=== PATIENT | female | born 1990 | race Caucasian/White ===

== ENCOUNTER 2016-12-21 20:00 | Emergency (ER) | payer OTHER ==
--- NOTE | 2016-12-21 22:26 | ED ---
Leticia Simental Rebecca, scribed for LienJimbo on 12/21/16 at 2039 . Throat Pain/Nasal Congestion - HPI Summary HPI Summary: Pt is a 26 y/o F who presents to ED c/o epistaxis. Pt reports this afternoon at approximately 1230 she has sinus surgery to "clean out my sinuses" as "a couple other things sinus related" and that the bleeding began immediately upon surgery and has been constant since onset. Denies any pain. Sx aggravated and alleviated by nothing. Denies fever. Surgery done by Dr. Anderson in [place] at [facility] [employer] whose [employer] OFFICER SUPERVISOR she discussed the condition with today and advised she come to the ED for packing. - History of Current Complaint Chief Complaint: EDEpistaxis Time Seen by Provider: 12/21/16 20:35 Hx Obtained From: Patient Onset/Duration: Sudden Onset, Still Present Associated Signs And Symptoms: Positive: Nasal Discharge - Blood s/p surgery Related History: Prior ENT Surgery - Sinus surgeyr this afternoon - Allergies/Home Medications Allergies/Adverse Reactions: Allergies Allergy/AdvReac Type Severity Reaction Status Date / Time Amoxicillin Allergy Severe Difficulty Verified 12/21/16 20:05 Breathing Cefuroxime [From Ceftin] Allergy Severe Difficulty Verified 12/21/16 20:05 Breathing Cetirizine Allergy Severe Swelling Verified 12/21/16 20:05 Of Face,Lips,& Throat Penicillins Allergy Severe Difficulty Verified 12/21/16 20:05 Breathing Magnesium Hydroxide Allergy Intermediate Itching Verified 12/21/16 20:05 [From Milk of Magnesia] Clindamycin Allergy Rash Verified 12/21/16 20:05 Tea Tree Oil Allergy CHEMICAL Verified 12/21/16 20:05 BURN Dextromethorphan AdvReac Mild See Comment Verified 12/21/16 20:05 [From Mucinex DM] PMH/Surg Hx/FS Hx/Imm Hx Endocrine/Hematology History: Denies: Hx Diabetes, Hx Thyroid Disease Cardiovascular History: Denies: Hx Hypertension, Hx Pacemaker/ICD Respiratory History: Denies: Hx Asthma, Hx Chronic Obstructive Pulmonary Disease (COPD) GI History: Denies: Hx Ulcer History: Denies: Hx Renal Disease Sensory History: Denies: Hx Contacts or Glasses, Hx Hearing Aid Opthamlomology History: Denies: Hx Contacts or Glasses Psychiatric History: Denies: Hx Panic Disorder - Surgical History Surgery Procedure, Year, and Place: 3 surgeries to left knee; tonsilectomy. wisdom teeth extraction-07/2015 Infectious Disease History: No Infectious Disease History: Denies: Hx Clostridium Difficile, Hx Hepatitis, Hx Human Immunodeficiency Virus (HIV), Hx of Known/Suspected MRSA, Hx Shingles, Hx Tuberculosis, Hx Known/ Suspected VRE, Hx Known/Suspected VRSA, History Other Infectious Disease, Traveled Outside the [place] in Last 30 Days - Family History Known Family History: Negative: Cardiac Disease - Social History Alcohol Use: None Substance Use Type: Reports: None Smoking Status (MU): Never Smoked Tobacco Review of Systems Negative: Fever Positive: Epistaxis - s/p sinus surgery All Other Systems Reviewed And Are Negative: Yes Physical Exam - Summary Physical Exam Summary: Appearance: Well appearing, no pain distress Skin: warm, dry, reflects adequate perfusion Head/face: normal Eyes: EOMI, SHELDON ENT: Some dried blood in both nostrils, no active bleeding Neck: supple, nontender Resp: CTA, breath sounds present Cardio: RRR, pulses symm Abd: nontender, soft Bowel: present Musc: normal, strength/ROM intact Neuro: normal, sensory motor intact, A&Ox3 Triage Information Reviewed: Yes Vital Signs On Initial Exam: Initial Vitals Temp Pulse Resp BP Pulse Ox 98.4 F 84 18 131/74 100 12/21/16 20:01 12/21/16 20:01 12/21/16 20:01 12/21/16 20:01 12/21/16 20:01 Vital Signs Reviewed: Yes Procedures - Procedure Summary Procedure Summary: Nasal packing done with Surgicel. Pt tolerated well, no bleeding at present. We will watch the pt. Diagnostics - Vital Signs Vital Signs Temp Pulse Resp BP Pulse Ox 12/21/16 20:01 98.4 F 84 18 131/74 100 - Laboratory Lab Statement: Any lab studies that have been ordered have been reviewed, and results considered in the medical decision making process. Re-Evaluation - Re-Evaluation First Eval Re-Evaluation Time: 21:40 Change: Unchanged Comment: Pt reports it feels as though there is blood running down the back of her throat. Upon examination, there is no active bleeding seen. Second Eval Re-Evaluation Time: 22:14 Change: Improved Comment: Discussed the conversaiton with Dr. Anderson's [employer] OFF[employer]ER SUPERVISOR and that the pt can follow up in the office tomorrow. Pt understands and agrees. EENT Course/Dx - Course Assessment/Plan: Pt is a 26 y/o F with a CC of constant epistaxis s/p sinus surgery this afternoon at 1230. Denies any pain and denies fever. Nasal packing was performed with Surgicel, which was tolerated well by the pt. Discussed care of pt with Dr. Anderson's [employer]RECTION OFFICER SUPERVISOR, who states she was advised to go to [place] ED for any complications, that posterior dribbling of blood is normal and that the pt can be seen in the office tomorrow. Pt will be D/C to home with a Dx of epistaxis, nasal surgery and post-operational complications with a followup with Lazarus Anderson in the morning. Pt understands and agrees. - Diagnoses Provider Diagnoses: Epistaxis, S/P nasal surgery, Post-operative complication - Provider Notifications Discussed Care Of Patient With: Dr. Anderson's [employer]RECTION OFFICER SUPERVISOR ([facility]) - States the pt was advised to followup at [place]. Will see pt in office. Time Discussed With Above Provider: 22:10 Discharge - Discharge Plan Condition: Stable Disposition: HOME Patient Education Materials: Nosebleed (ED) Referrals: Morris Anderson MD [Medical Doctor] - 12/22/16 The documentation as recorded by the Leticia antonio Rebecca accurately reflects the service I personally performed and the decisions made by , Jimbo Emmanuel.
[2016-12-21 22:59] VITALS: BP 118/79
== END 2016-12-21 22:57 | disposition home or self-care (01) ==
LOC: ED 20:00
DX: R04.0 Epistaxis (principal); Z98.890 Other specified postprocedural states
CPT/HCPCS: 99281

== ENCOUNTER 2017-01-18 09:31 | Emergency (ER) | payer OTHER ==
[2017-01-18 11:35] VITALS: BP 113/88
--- NOTE | 2017-01-18 12:20 | RAD ---
INDICATION: Right ankle injury COMPARISON: None TECHNIQUE: AP, lateral, and oblique views were obtained. FINDINGS: There is no acute fracture. The ankle mortise is intact. The soft tissues are normal. Incidental is made of a plantar calcaneal spur. IMPRESSION: NO ACUTE BONY FINDINGS.
--- NOTE | 2017-01-18 12:58 | UC ---
Lower Extremity/Ankle HPI - HPI Summary HPI Summary: TRIPPED ONE WEEK AGO, PAIN AND SWELLING IN RIGHT ANKLE - History of Current Complaint Chief Complaint: UCLowerExtremity Stated Complaint: SWOLLEN FOOT Time Seen by Provider: 01/18/17 11:45 Hx Obtained From: Patient Hx Last Menstrual Period: 01/08/17 ?: Yes Onset/Duration: Sudden Onset, Lasting Days, Still Present Severity Initially: Mild Severity Currently: Mild Pain Intensity: 4 Pain Scale Used: 0-10 Numeric Aggravating Factor(s): Standing, Ambulation Alleviating Factor(s): Rest Able to Bear Weight: Yes - Risk Factors Gout Risk Factors: Negative DVT Risk Factors: Negative Septic Arthritis Risk Factor: Negative - Allergies/Home Medications Allergies/Adverse Reactions: Allergies Allergy/AdvReac Type Severity Reaction Status Date / Time Amoxicillin Allergy Severe Difficulty Verified 01/18/17 09:57 Breathing Cefuroxime [From Ceftin] Allergy Severe Difficulty Verified 01/18/17 09:57 Breathing Cetirizine Allergy Severe Swelling Verified 01/18/17 09:57 Of Face,Lips,& Throat Penicillins Allergy Severe Difficulty Verified 01/18/17 09:57 Breathing Magnesium Hydroxide Allergy Intermediate Itching Verified 01/18/17 09:57 [From Milk of Magnesia] Clindamycin Allergy Rash Verified 01/18/17 09:57 Tea Tree Oil Allergy CHEMICAL Verified 01/18/17 09:57 BURN Dextromethorphan AdvReac Mild See Comment Verified 01/18/17 09:57 [From Mucinex DM] Home Medications: Home Medications Ferrogluconate 1 tab PO DAILY 01/18/17 [History] Guaifenesin 1 tab PO DAILY 01/18/17 [History Confirmed 01/18/17] LevoCETirizine TAB (NF) [Xyzal TAB (NF)] 1 tab PO DAILY 01/18/17 [History Confirmed 01/18/17] Mometasone NASAL (NF) [Nasonex (NF)] 01/18/17 [History] Montelukast Sodium TAB* [Singulair 10 MG TAB*] 10 mg PO DAILY 01/18/17 [History Confirmed 01/18/17] Multiple Vitamin [Multivitamins] 1 PO DAILY 01/18/17 [History] PMH/Surg Hx/FS Hx/Imm Hx Previously Healthy: Yes - Surgical History Surgical History: Yes Surgery Procedure, Year, and Place: 3 surgeries to left knee; tonsilectomy. wisdom teeth extraction-07/2015. SINUS - Family History Known Family History: Positive: None Negative: Cardiac Disease - Social History Occupation: Employed Full-time Lives: With Family Alcohol Use: None Substance Use Type: None Smoking Status (MU): Never Smoked Tobacco Review of Systems Constitutional: Negative Skin: Negative Eyes: Negative ENT: Negative Respiratory: Negative Cardiovascular: Negative Gastrointestinal: Negative Genitourinary: Negative Motor: Negative Neurovascular: Negative Musculoskeletal: Arthralgia, Edema, Myalgia Neurological: Negative Psychological: Negative All Other Systems Reviewed And Are Negative: Yes Physical Exam Triage Information Reviewed: Yes Appearance: Well-Appearing, No Pain Distress, Well-Nourished Vital Signs: Initial Vital Signs Temp 98.4 F 01/18/17 10:02 Pulse 87 01/18/17 10:02 Resp 16 01/18/17 10:02 BP 124/78 01/18/17 10:02 Pulse Ox 100 01/18/17 10:02 Vital Signs Reviewed: Yes Eye Exam: Normal ENT Exam: Normal ENT: Positive: Normal ENT inspection, Hearing grossly normal, TMs normal Dental Exam: Normal Neck exam: Normal Respiratory Exam: Normal Respiratory: Positive: Chest non-tender, Lungs clear, Normal breath sounds, No respiratory distress, No accessory muscle use Cardiovascular Exam: Normal Cardiovascular: Positive: RRR, No Murmur, Pulses Normal Abdominal Exam: Normal Musculoskeletal Exam: Normal Musculoskeletal: Positive: Strength Intact, ROM Intact, Edema @ - RIGHT ANKLE Neurological Exam: Normal Psychological Exam: Normal Skin Exam: Normal Lower Extremity Course/Dx - Differential Dx/Diagnosis Differential Diagnosis/HQI/PQRI: Fracture (Closed), Sprain, Strain Provider Diagnoses: RIGHT ANKLE SPRAIN Discharge - Discharge Plan Condition: Stable Disposition: HOME Patient Education Materials: Ankle Sprain (ED) Forms: *Work Release Referrals: [facility] [Outside] Delma Ha NP [Primary Care Provider] -
== END 2017-01-18 12:54 | disposition home or self-care (01) ==
LOC: UCEAST 09:31
DX: S93.401A Sprain of unspecified ligament of right ankle, initial encounter (principal); Z88.0 Allergy status to penicillin; W01.0XXA Fall on same level from slipping, tripping and stumbling without subsequent striking against object, initial encounter; Y92.9 Unspecified place or not applicable
CPT/HCPCS: 99213; G0463

== ENCOUNTER 2017-01-22 15:19 | Emergency (ER) | payer OTHER ==
[2017-01-22 15:33] VITALS: BP 127/82
--- NOTE | 2017-01-22 15:46 | UC ---
Lower Extremity/Ankle HPI - HPI Summary HPI Summary: pat seen last week dx with sprain right ankle, still is unable to wb fully using crutch and gel splint - History of Current Complaint Chief Complaint: UCLowerExtremity Stated Complaint: SHERLYN-FORM Time Seen by Provider: 01/22/17 15:45 Hx Obtained From: Patient Hx Last Menstrual Period: 01/14/17 ?: No Onset/Duration: Sudden Onset, Lasting Days, Still Present Severity Initially: Moderate Severity Currently: Moderate Pain Intensity: 6 Pain Scale Used: 0-10 Numeric - 6 Aggravating Factor(s): Standing, Ambulation Alleviating Factor(s): Rest Able to Bear Weight: No - Allergies/Home Medications Allergies/Adverse Reactions: Allergies Allergy/AdvReac Type Severity Reaction Status Date / Time Amoxicillin Allergy Severe Difficulty Verified 01/18/17 09:57 Breathing Cefuroxime [From Ceftin] Allergy Severe Difficulty Verified 01/18/17 09:57 Breathing Cetirizine Allergy Severe Swelling Verified 01/18/17 09:57 Of Face,Lips,& Throat Penicillins Allergy Severe Difficulty Verified 01/18/17 09:57 Breathing Magnesium Hydroxide Allergy Intermediate Itching Verified 01/18/17 09:57 [From Milk of Magnesia] Clindamycin Allergy Rash Verified 01/18/17 09:57 Tea Tree Oil Allergy CHEMICAL Verified 01/18/17 09:57 BURN Dextromethorphan AdvReac Mild See Comment Verified 01/18/17 09:57 [From Mucinex DM] PMH/Surg Hx/FS Hx/Imm Hx Previously Healthy: Yes - Surgical History Surgical History: Yes Surgery Procedure, Year, and Place: 3 surgeries to left knee; tonsilectomy. wisdom teeth extraction-07/2015. SINUS - Family History Known Family History: Positive: None Negative: Cardiac Disease - Social History Occupation: Employed Full-time Lives: With Family Alcohol Use: None Substance Use Type: None Smoking Status (MU): Never Smoked Tobacco Review of Systems Constitutional: Negative Skin: Negative Eyes: Negative ENT: Negative Respiratory: Negative Cardiovascular: Negative Gastrointestinal: Negative Genitourinary: Negative Motor: Negative Neurovascular: Negative Musculoskeletal: Arthralgia - right Neurological: Negative Psychological: Negative All Other Systems Reviewed And Are Negative: Yes Physical Exam Triage Information Reviewed: Yes Appearance: Well-Appearing, No Pain Distress, Well-Nourished Vital Signs: Initial Vital Signs Temp 97.9 F 01/22/17 15:29 Pulse 86 01/22/17 15:29 Resp 18 01/22/17 15:29 BP 127/82 01/22/17 15:29 Pulse Ox 100 01/22/17 15:29 Vital Signs Reviewed: Yes Eye Exam: Normal Eyes: Positive: Conjunctiva Clear ENT Exam: Normal ENT: Positive: Normal ENT inspection, Hearing grossly normal. Negative: Nasal congestion, Nasal drainage, Trismus, Muffled/hoarse voice Dental Exam: Normal Neck exam: Normal Neck: Positive: Supple, Nontender Respiratory Exam: Normal Respiratory: Positive: Chest non-tender, Normal breath sounds, No respiratory distress, No accessory muscle use Cardiovascular Exam: Normal Cardiovascular: Positive: RRR, Pulses Normal, Brisk Capillary Refill Musculoskeletal Exam: Normal Musculoskeletal: Positive: Strength Limited @ - right ankle, ROM Limited @ - right ankle, Edema @ - right ankle Neurological Exam: Normal Psychological Exam: Normal Skin Exam: Normal Re-Evaluation - Re-Evaluation First Eval Change: Improved - changed to cam boot Lower Extremity Course/Dx - Course Course Of Treatment: cam boot, limited wb , for with ortho, ibuprofen for pain - Differential Dx/Diagnosis Differential Diagnosis/HQI/PQRI: Contusion, Fracture (Closed), Sprain, Strain Provider Diagnoses: Right ankle sprain Discharge - Discharge Plan Condition: Stable Disposition: HOME Patient Education Materials: Ibuprofen (By mouth), Ankle Sprain (ED), RICE Therapy (ED) Forms: *Work Release Referrals: Yusuf Velazquez MD [Medical Doctor] - 2 Days
== END 2017-01-22 16:20 | disposition home or self-care (01) ==
LOC: UCEAST 15:19
DX: S93.401D Sprain of unspecified ligament of right ankle, subsequent encounter (principal)
CPT/HCPCS: 99212; G0463

== ENCOUNTER 2017-04-01 21:55 | Emergency (ER) | payer OTHER ==
[2017-04-01 22:01] VITALS: BP 128/80
[2017-04-01] MEDS ORDERED: Tetan/Diph/Pertus SYR(Tdap)* 0.5 ML SYR(BOOSTRIX) use SYR IM ONE (22:24)
--- NOTE | 2017-04-01 22:49 | UC ---
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 - History Of Current Complaint Chief Complaint: UCLaceration Stated Complaint: THUMB LAC Time Seen by Provider: 04/01/17 22:13 Hx Obtained From: Patient Hx Last Menstrual Period: 03/11/17 Laceration Location: Finger - RIGHT THUMB Mechanism Of Injury: Sharp Trauma Onset/Duration: Sudden Onset, Lasting Hours Severity: Moderate Pain Intensity: 9 Pain Scale Used: 0-10 Numeric Aggravating Factors: Movement - Allergies/Home Medications Allergies/Adverse Reactions: Allergies Allergy/AdvReac Type Severity Reaction Status Date / Time Amoxicillin Allergy Severe Difficulty Verified 01/18/17 09:57 Breathing Cefuroxime [From Ceftin] Allergy Severe Difficulty Verified 01/18/17 09:57 Breathing Penicillins Allergy Severe Difficulty Verified 01/18/17 09:57 Breathing Magnesium Hydroxide Allergy Intermediate Itching Verified 01/18/17 09:57 [From Milk of Magnesia] Clindamycin Allergy Rash Verified 01/18/17 09:57 Tea Tree Oil Allergy CHEMICAL Verified 01/18/17 09:57 BURN Dextromethorphan AdvReac Mild See Comment Verified 01/18/17 09:57 [From Mucinex DM] Home Medications: Home Medications Diphenhydramine HCl [Benadryl Allergy 25 MG TAB] 25 mg PO 04/01/17 [History] Fexofenadine (NF) [Lacey (NF)] 120 mg PO DAILY 04/01/17 [History Confirmed 05/08] Montelukast Sodium TAB* [Singulair 10 MG TAB*] 04/01/17 [History] PMH/Surg Hx/FS Hx/Imm Hx Other Respiratory History: ALLERGIES - Surgical History Surgical History: Yes Surgery Procedure, Year, and Place: 3 surgeries to left knee; tonsilectomy. wisdom teeth extraction-07/2015. SINUS - Family History Known Family History: Positive: None Negative: Cardiac Disease - Social History Alcohol Use: None Substance Use Type: None Smoking Status (MU): Never Smoked Tobacco Review of Systems Constitutional: Negative Skin: Other - LACERATION Respiratory: Negative Cardiovascular: Negative Gastrointestinal: Negative All Other Systems Reviewed And Are Negative: Yes Physical Exam Triage Information Reviewed: Yes Appearance: Well-Appearing, No Pain Distress, Well-Nourished Vital Signs: Initial Vital Signs Temp 97.3 F 04/01/17 21:57 Pulse 79 04/01/17 21:57 Resp 18 04/01/17 21:57 BP 128/80 04/01/17 21:57 Pulse Ox 100 04/01/17 21:57 Vital Signs Reviewed: Yes Eyes: Positive: Conjunctiva Clear ENT: Positive: Hearing grossly normal Neck: Positive: Supple Respiratory: Positive: No respiratory distress, No accessory muscle use Cardiovascular: Positive: Pulses Normal Abdomen Description: Positive: Soft Musculoskeletal: Positive: No Edema Neurological: Positive: Alert Psychological: Positive: Age Appropriate Behavior Skin: Positive: Other - 1CM LINEAR LACERATION RIGHT THUMB OVER MCP JOINT. Negative: rashes Laceration Repair - Laceration Repair 1 Description: Linear Laceration Size After Repair: Length (cm) - 1CM, Width (mm) - 0MM, Depth (mm) - 2MM Modified For Repair: No Irrigation With Pressure Irrigation Device: Yes Closure Material: Skin Adhesive, SteriStrips Laceration Course/Dx - Course/Dx Course Of Treatment: PT HAS AN APPT WITH DR. ACUNA THIS WEEK ALREADY FOR A SEPARATE ISSUE. ADVISED PT TO CALL TOMORROW TO INFORM THEM SHE WOULD ALSO LIKE TO DISCUSS HER THUMB INJURY SHE IS UNABLE TO FULLY FLEX HER THUMB. - Differential Dx - Laceration/Wound Provider Diagnoses: LACERATION REPAIR RIGHT THUMB - GLUE AND STERISTRIPS Discharge - Discharge Plan Condition: Stable Disposition: HOME Patient Education Materials: Laceration (ED), Steristrips (ED) Referrals: Delma Ha, RN NEONATAL [Primary Care Provider] - If Needed Additional Instructions: SEEK FOLLOW-UP IF YOU DEVELOP SPREADING REDNESS OF THE SKIN, PURULENT DRAINAGE, FEVER, INCREASED PAIN OR ANY OTHER CONCERNING SYMPTOMS. THE STERISTRIPS WILL FALL OFF ON THEIR OWN IN THE NEXT 1-2 WEEKS. DO NOT PUT ANY OINTMENT ON TOP OF THEM. DO NOT SUBMERGE IN WATER FOR PROLONGED PERIOD OF TIME. OKAY FOR BRIEF SHOWER AFTER 24 HOURS AND THEN BE SURE TO ALLOW TO DRY COMPLETELY. TETANUS IMMUNIZATION GIVEN (TDAP): You have been given an immunization against tetanus. Please record this in your records. In general, a booster is needed only once every 10 years. The tetanus shot protects against tetanus or "lockjaw," which is a complication of certain wound infections (the tetanus shot cannot protect against the actual infection). The immunization site may become warm and red due to local reaction. If this occurs, apply warm compresses and take aspirin or ibuprofen to reduce inflammation and discomfort. Return for evaluation if the reaction becomes severe.
== END 2017-04-01 22:51 | disposition home or self-care (01) ==
LOC: UCEAST 21:55
DX: S61.011A Laceration without foreign body of right thumb without damage to nail, initial encounter (principal); W26.0XXA Contact with knife, initial encounter; Y93.G1 Activity, food preparation and clean up; Y92.9 Unspecified place or not applicable
CPT/HCPCS: 12001; 90471; 90715; 99211; G0463

== ENCOUNTER 2017-05-07 13:49 | Emergency (ER) | payer OTHER ==
[2017-05-07 14:31] VITALS: BP 125/84
--- NOTE | 2017-05-07 15:15 | UC ---
Helena Simental Emily, scribed for Ingris Gallagher MD on 05/07/17 at 1502 . General HPI - HPI Summary HPI Summary: This patient is a 26 year old F presenting to urgent care with a chief complaint of difficulty swallowing solid foods that began 1 week ago. The CC is described as pressure when swallowing. P states solid foods feel like they get stuck and cause mild Sob. The patient rates the pain 4/10 in severity during event only. Symptoms aggravated by nothing. Symptoms alleviated by nothing. Patient reports vomiting and gagging with resolution after vomits. Pt reports difficulty breathing during the episodes where she cannot swallow solid foods. Pt without symptoms currently. Pt states last episode approx noon today. No previous h/o similar. No belching. No drooling. Patient's medication reviewed this visit. - History of Current Complaint Chief Complaint: UCGI Stated Complaint: TROUBLE SWALLOWING Time Seen by Provider: 05/07/17 14:53 Hx Obtained From: Patient Hx Last Menstrual Period: 04/08 Onset/Duration: Sudden Onset, Lasting Weeks, Still Present Onset Severity: Moderate Current Severity: Moderate Associated Signs & Symptoms: Positive: Vomiting, Other - solid food getting stuck - Allergy/Home Medications Allergies/Adverse Reactions: Allergies Allergy/AdvReac Type Severity Reaction Status Date / Time Amoxicillin Allergy Severe Difficulty Verified 05/07/17 14:31 Breathing Cefuroxime [From Ceftin] Allergy Severe Difficulty Verified 05/07/17 14:31 Breathing Penicillins Allergy Severe Difficulty Verified 05/07/17 14:31 Breathing Magnesium Hydroxide Allergy Intermediate Itching Verified 05/07/17 14:31 [From Milk of Magnesia] Clindamycin Allergy Rash Verified 05/07/17 14:31 Tea Tree Oil Allergy CHEMICAL Verified 05/07/17 14:31 BURN Dextromethorphan AdvReac Mild See Comment Verified 05/07/17 14:31 [From Mucinex DM] Home Medications: Home Medications Azelastine/Fluticasone JESSICA(NF [Dymista(NF)] 1 spr NA 05/07/17 [History Confirmed 05/07/17] Fluticasone Propionate (Nasal) [Flonase Allergy Relief] 50 mcg NA 05/07/17 [ History] PMH/Surg Hx/FS Hx/Imm Hx - Additional Past Medical History Additional PMH: Psoriasis Previously Healthy: No Other Respiratory History: Negative COPD and asthma - Surgical History Surgical History: Yes Surgery Procedure, Year, and Place: 3 surgeries to left knee; tonsilectomy. wisdom teeth extraction-07/2015. S[facility]US - Family History Known Family History: Positive: None Negative: Cardiac Disease - Social History Occupation: Employed Full-time Lives: With Family Alcohol Use: Rare Substance Use Type: None Smoking Status (MU): Never Smoked Tobacco Review of Systems Constitutional: Negative Skin: Negative ENT: Other - Positive difficulty swallowing solid foods Respiratory: Other - Positive difficulty breathing during episodes Gastrointestinal: Vomiting, Other - Positive gagging All Other Systems Reviewed And Are Negative: Yes Physical Exam Triage Information Reviewed: Yes Appearance: Well-Appearing, No Pain Distress, Well-Nourished Vital Signs: Initial Vital Signs Temp 98.2 F 05/07/17 14:26 Pulse 83 05/07/17 14:26 Resp 18 05/07/17 14:26 BP 125/84 05/07/17 14:26 Pulse Ox 100 05/07/17 14:26 Vital Signs Reviewed: Yes Eye Exam: Normal Eyes: Positive: Conjunctiva Clear ENT Exam: Normal ENT: Positive: Normal ENT inspection, Hearing grossly normal, Pharynx normal, TMs normal, Other: - no drooling, posturing, difficulty with secretions. Dental Exam: Normal Neck exam: Normal Respiratory Exam: Normal Respiratory: Positive: Chest non-tender, Lungs clear, Normal breath sounds, No respiratory distress Cardiovascular Exam: Normal Cardiovascular: Positive: RRR, No Murmur, Pulses Normal Abdominal Exam: Normal Abdomen Description: Positive: Nontender, No Organomegaly, Soft Bowel Sounds: Positive: Present Musculoskeletal Exam: Normal Neurological Exam: Normal Neurological: Positive: Alert Psychological Exam: Normal Skin Exam: Normal Course/Dx - Course Course Of Treatment: Pt presents with progressive difficulty with solid food - states feels gets stuck - mid chest area. pt states resolved with gagging, vomiting. No difficulty with soft foods or liquids. Pt without current symptoms. Pt with stable VSS. Non concerning exam. Pt uses public transportation. Pt has never been seen by GI. spoke with Dr. Vela's office- [facility] - Dr. Vela doing scope. Recommend pt to ED for further eval and treatment plan. Spoke with pt - agreeement with plan. Will try to arrange medicaid cab to ED - pt without active symptoms. Pt to remain NPO until further evaluation - Differential Dx - Multi-Symptom Provider Diagnoses: difficulty swallowing - Physician Notifications Discussed Patient Care With: Sukh Vela Time Discussed With Above Provider: 15:11 Instructed by Provider To: Other - Consult with Dr. Vela (gastroenterology) at 1511. Dr. Vela was unavailable due to a procedure, spoke to nurse Ute instead. She recommended pt be sent to the ED for further evaluation. Discharge - Discharge Plan Condition: Stable Disposition: OTHER Discharge Disposition Comment: To ED by private vehicle (medicaid cab) Patient Education Materials: Dysphagia (ED) Referrals: Delma Ha NP [Primary Care Provider] - Additional Instructions: The doctor that evaluated you today recommend you go directly to the emergency department for further evaluation of your difficulty swallowing. It is recommended you do not eat or drink anything prior to your evaluation there. If you develop recurrent symptoms - call 911 or go directly to the emergency department The documentation as recorded by the Helena antonio Emily accurately reflects the service I personally performed and the decisions made by me, Ingris Gallagher MD.
== END 2017-05-07 15:33 ==
LOC: UCEAST 13:49
DX: R13.10 Dysphagia, unspecified (principal); Z88.1 Allergy status to other antibiotic agents; Z88.0 Allergy status to penicillin; Z88.2 Allergy status to sulfonamides; L40.9 Psoriasis, unspecified
CPT/HCPCS: 99211; G0463

== ENCOUNTER 2017-05-07 16:11 | Emergency (ER) | payer OTHER ==
--- NOTE | 2017-05-07 19:25 | ED ---
Throat Pain/Nasal Congestion - HPI Summary HPI Summary: 26 female presents to ED with complaint of difficulty swallowing solid foods that began 1 week ago. Describes as pressure and like there is "a flap in the way of her esophagus". States solid foods get stuck and do not get down. Does admit to some SOB when she cannot swallow the solid foods. Without symptoms currently. Symptoms alleviated by nothing other than vomiting/gagging the solid food back up and not eating solid food. Pain 4/10 during event. Last episode was this afternoon while eating her lunch. No previous history. No PMHx other than seasonal allergies. No belching, drooling, etc. Takes allergy medication. Thought it was a new medication that she was started on, nasal spray, however she stopped using it 5 days ago and has not had relief of symptoms. 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 No other complaints at this time. . - History of Current Complaint Chief Complaint: EDGeneral Time Seen by Provider: 05/07/17 18:13 Hx Obtained From: Patient Onset/Duration: Sudden Onset, Lasting Days, Still Present Associated Signs And Symptoms: Positive: Dysphagia - trouble swallowing solid foods Cough: None - Epiglottits Risk Factors Epiglottis Risk Factors: Negative - Allergies/Home Medications Allergies/Adverse Reactions: Allergies Allergy/AdvReac Type Severity Reaction Status Date / Time Amoxicillin Allergy Severe Difficulty Verified 05/07/17 16:20 Breathing Cefuroxime [From Ceftin] Allergy Severe Difficulty Verified 05/07/17 16:20 Breathing Penicillins Allergy Severe Difficulty Verified 05/07/17 16:20 Breathing Magnesium Hydroxide Allergy Intermediate Itching Verified 05/07/17 16:20 [From Milk of Magnesia] Clindamycin Allergy Rash Verified 05/07/17 16:20 Tea Tree Oil Allergy CHEMICAL Verified 05/07/17 16:20 BURN Dextromethorphan AdvReac Mild See Comment Verified 05/07/17 16:20 [From Mucinex DM] PMH/Surg Hx/FS Hx/Imm Hx Endocrine/Hematology History: Denies: Hx Diabetes, Hx Thyroid Disease Cardiovascular History: Denies: Hx Hypertension, Hx Pacemaker/ICD Respiratory History: Denies: Hx Asthma, Hx Chronic Obstructive Pulmonary Disease (COPD) GI History: Denies: Hx Ulcer History: Denies: Hx Renal Disease Sensory History: Denies: Hx Contacts or Glasses, Hx Hearing Aid Opthamlomology History: Denies: Hx Contacts or Glasses Psychiatric History: Denies: Hx Panic Disorder - Surgical History Surgery Procedure, Year, and Place: 3 surgeries to left knee; tonsilectomy. wisdom teeth extraction-07/2015. SINUS - Immunization History Immunizations Up to Date: Yes Infectious Disease History: No Infectious Disease History: Denies: Hx Clostridium Difficile, Hx Hepatitis, Hx Human Immunodeficiency Virus (HIV), Hx of Known/Suspected MRSA, Hx Shingles, Hx Tuberculosis, Hx Known/ Suspected VRE, Hx Known/Suspected VRSA, History Other Infectious Disease, Traveled Outside the [place] in Last 30 Days - Family History Known Family History: Positive: None Negative: Cardiac Disease - Social History Alcohol Use: Rare Substance Use Type: Reports: None Smoking Status (MU): Never Smoked Tobacco Review of Systems Constitutional: Negative Positive: Other - dysphagia Respiratory: Negative Gastrointestinal: Negative Musculoskeletal: Negative All Other Systems Reviewed And Are Negative: Yes Physical Exam Triage Information Reviewed: Yes Vital Signs On Initial Exam: Initial Vitals Temp Pulse Resp BP Pulse Ox 98.1 F 83 16 133/81 100 05/07/17 16:18 05/07/17 16:18 05/07/17 16:18 05/07/17 16:18 05/07/17 16:18 Vital Signs Reviewed: Yes Appearance: Positive: Well-Appearing, No Pain Distress, Well-Nourished Skin: Positive: Warm, Skin Color Reflects Adequate Perfusion, Dry. Negative: Cold, Cyanosis @, Jaundiced, Pale, Erythema @ Head/Face: Positive: Normal Head/Face Inspection Eyes: Positive: Conjunctiva Clear ENT: Positive: Hearing grossly normal, Pharynx normal, Other - no drooling, no peritonsillar abscess, no sign of FB. patent airway on exam. no edema. Negative : Pharyngeal erythema, TMs normal, Tonsillar swelling, Tonsillar exudate, Trismus, Muffled/hoarse voice Dental: Negative: Cervical Lymphadenopathy Neck: Positive: Supple, Nontender, No Lymphadenopathy Respiratory/Lung Sounds: Positive: Clear to Auscultation, Breath Sounds Present , Other - no sign of respiratory distress. Negative: Rales, Rhonchi, Wheezes Cardiovascular: Positive: Normal, RRR, Pulses are Symmetrical in both Upper and Lower Extremities. Negative: Murmur, Rub Abdomen Description: Positive: Nontender, Soft Bowel Sounds: Positive: Present Musculoskeletal: Positive: Normal, Strength/ROM Intact Neurological: Positive: Normal, Sensory/Motor Intact, Alert, Oriented to Person Place, Time Diagnostics - Vital Signs Vital Signs Temp Pulse Resp BP Pulse Ox 05/07/17 16:18 98.1 F 83 16 133/81 100 - Laboratory Lab Statement: Any lab studies that have been ordered have been reviewed, and results considered in the medical decision making process. - CT neck soft tisue CT Interpretation: No Acute Changes - Submandibular and submental lymph nodes. No gross masses are noted. CT Interpretation Completed By: Radiologist Re-Evaluation - Re-Evaluation First Eval Re-Evaluation Time: 21:08 Change: Improved - updated on imaging results, lidocaine did not help. outpatient referral. no emergent concern. patient understands. did not want to be transferred. EENT Course/Dx - Course Course Of Treatment: spoke with Dr Vela at 7:36pm,k although he was not chemist instrumentation, as it was noted at UC visit that he was consulted. Dr Vela was not familiar with patient. stated to have follow up in office. Patient was able to eat soft foods and liquids, no concern for airway involvement or malnutrition. Unknown etiology of symptoms, no choking event. CT soft tissue neck obtained and negative. Given viscous lidocaine in attempt for relief. Referred to GI for outpatient endoscopy, as did not appear necessary for transfer at this time and patient refused being transferred. Not emergent currently, however patient is aware of worsening signs and symptoms to watch out for. No concerning PE findings. Does not appear to be medication related. Was able to drink/eat soft foods while in ED. Dr Patterson agrees with this plan. Patient agrees with plan, all questions were answered. - Differential Diagnoses Differential Diagnoses: Pharyngitis, Tonsilitis, Other - dysphagia, difficulty swallowing - Diagnoses Provider Diagnoses: Dysphagia Discharge - Discharge Plan Condition: Stable Disposition: HOME Patient Education Materials: Dysphagia (ED) Referrals: Delma Ha NP [Primary Care Provider] - Additional Instructions: Continue eating soft foods and drinking liquids. Avoid solid food. Continue medications as prescribed. Please follow up with GI, call and make an appointment for further imaging and evaluation. If you develop any new or worsening symptoms please seek medical attention immediately. Follow up with PCP.
[2017-05-07] MEDS ORDERED: Lidocaine 2% VISCOUS* 15 ML UDC PO ONE (20:48)
--- NOTE | 2017-05-07 20:58 | RAD ---
Indication: Dysphagia. CT of the soft tissues of the neck was performed without oral or IV contrast administration. The lung apices are unremarkable. Unremarkable thyroid gland is unremarkable. Submandibular glands are unremarkable. There is submental lymph nodes and submandibular nodes present measuring up to 10 mm. Submandibular gland lymph node measures 6 mm on the left and 8 mm on the right. The parotid glands are unremarkable. No prevertebral soft tissue swelling is noted. Scattered carotid chain lymph nodes are noted measuring up to 3 to 5 mm. No prevertebral soft tissue swelling is noted. Lymph nodes are noted superior to the left subclavian vein. This measures up to 9 mm. IMPRESSION: Submandibular and submental lymph nodes. No gross masses are noted.
[2017-05-07 22:27] VITALS: BP 130/81
== END 2017-05-07 22:15 | disposition home or self-care (01) ==
LOC: ED 16:11
DX: R13.10 Dysphagia, unspecified (principal); Z88.1 Allergy status to other antibiotic agents; Z88.0 Allergy status to penicillin
CPT/HCPCS: 70490; 99281

== ENCOUNTER 2017-08-18 09:06 | Emergency (ER) | payer OTHER ==
[2017-08-18 09:22] VITALS: BP 138/89
--- NOTE | 2017-08-18 09:57 | UC ---
Abdominal Pain Female HPI - HPI Summary HPI Summary: 26 Y/O female presents for C/O RLQ pain with nausea, anorexia, x 2 days. Denies vomiting and dysuria. Denies pain with intercourse flank pain or vaginal discharge. Blood pressure elevated at this visit without history of hypertension. States pain 7/10. Medical history and medications reviewed at this visit. - History of Current Complaint Chief Complaint: UCAbdominalPain Stated Complaint: ABDOMINAL PAIN Time Seen by Provider: 08/18/17 09:39 Hx Obtained From: Patient Hx Last Menstrual Period: 04/08 ?: No Onset/Duration: Gradual Onset, Lasting Days Timing: Constant Severity Initially: Mild Severity Currently: Moderate Pain Intensity: 7 Pain Scale Used: 0-10 Numeric Location: Discrete At: RLQ Radiates: No Character: Dull Aggravating Factor(s): Other: - palpation Alleviating Factor(s): Nothing Associated Signs and Symptoms: Positive: Nausea Allergies/Adverse Reactions: Allergies Allergy/AdvReac Type Severity Reaction Status Date / Time Amoxicillin Allergy Severe Difficulty Verified 05/07/17 16:20 Breathing Cefuroxime [From Ceftin] Allergy Severe Difficulty Verified 05/07/17 16:20 Breathing Penicillins Allergy Severe Difficulty Verified 05/07/17 16:20 Breathing Magnesium Hydroxide Allergy Intermediate Itching Verified 05/07/17 16:20 [From Milk of Magnesia] Azithromycin [From Zithromax] Allergy Rash Verified 08/18/17 09:25 Clindamycin Allergy Rash Verified 05/07/17 16:20 Dexamethasone Allergy Fatigue Verified 08/18/17 09:25 Guaifenesin [From Mucinex DM] Allergy Fatigue Verified 08/18/17 09:25 Sulfamethoxazole Allergy Rash Verified 08/18/17 09:25 w/Trimethoprim [From Bactrim] Tea Tree Oil Allergy CHEMICAL Verified 05/07/17 16:20 BURN Yellow Dye [From Mucinex DM] Allergy Fatigue Verified 08/18/17 09:25 Dextromethorphan AdvReac Mild See Comment Verified 05/07/17 16:20 [From Mucinex DM] Home Medications: Home Medications Cetirizine HCl [All Day Allergy] 10 mg PO 08/18/17 [History] Mometasone Furoate (Nasal) [Nasonex] 50 mcg NA 08/18/17 [History] PMH/Surg Hx/FS Hx/Imm Hx Previously Healthy: Yes - Surgical History Surgical History: Yes Surgery Procedure, Year, and Place: 3 surgeries to left knee; tonsilectomy. wisdom teeth extraction-07/2015. SINUS - Family History Known Family History: Positive: None Negative: Cardiac Disease - Social History Alcohol Use: Rare Substance Use Type: None Smoking Status (MU): Never Smoked Tobacco Review of Systems Constitutional: Chills Skin: Negative Eyes: Negative ENT: Negative Respiratory: Negative Cardiovascular: Negative Gastrointestinal: Negative Genitourinary: Negative Motor: Negative Neurovascular: Negative Musculoskeletal: Negative Neurological: Negative Psychological: Negative Is Patient Immunocompromised?: No All Other Systems Reviewed And Are Negative: Yes Physical Exam Triage Information Reviewed: Yes Appearance: Pain Distress - Pain 01/29 no distress Vital Signs: Initial Vital Signs Temp 97.9 F 08/18/17 09:17 Pulse 93 08/18/17 09:17 Resp 18 08/18/17 09:17 BP 138/89 08/18/17 09:17 Pulse Ox 100 08/18/17 09:17 Vital Signs Reviewed: Yes Respiratory Exam: Normal Respiratory: Positive: Lungs clear Cardiovascular Exam: Normal Cardiovascular: Positive: RRR Abdomen Description: Positive: Other: - Tender RLQ Bowel Sounds: Positive: Hypoactive Musculoskeletal Exam: Normal Neurological Exam: Normal Psychological Exam: Normal Skin Exam: Normal Abd Pain Female Course/Dx - Differential Dx/Diagnosis Differential Diagnosis: Appendicitis, Ovarian Cyst, Renal Colic, Urinary Tract Infection Provider Diagnoses: RLQ pain Discharge - Discharge Plan Condition: Guarded Disposition: [facility] CARE [facility] Referrals: Delma Ha NP [Primary Care Provider] - Additional Instructions: Transferred to ER for further evaluation.
== END 2017-08-18 10:35 | disposition short-term general hospital (02) ==
LOC: UCEAST 09:06
DX: R10.31 Right lower quadrant pain (principal)
CPT/HCPCS: 81003; 81025; 87086; 99213; G0463

== ENCOUNTER 2017-08-18 10:53 | Emergency (ER) | payer OTHER ==
[2017-08-18] MEDS ORDERED: NS 0.9% 1000 ML* 1,000 ML IV ONE (11:07)
--- NOTE | 2017-08-18 11:13 | ED ---
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 Pain is rated a 6 out of 10, constant, worse with lying flat, better with standing. She endorses early satiety and declines wanting any food or hunger. She denies any chance of has never had a history over ovarian cysts. Denies any abdominal surgeries or pregnancies. Denies nausea, vomiting, diarrhea, constipation although notes to slightly looser stool this morning. She was unable to remember if it had a strange odor or color. Denies sick contacts and has not had the flu shot. She denies any pain in the right upper quadrant. Pain into the right lower quadrant was not worsened with by mouth intake. Denies oral contraceptives or implants. Denies any vaginal discharge, urinary symptoms, back pain. Denies fever, sweats, chills. The pain is described as aching and sometimes sharp. Denies any health history and takes no medications. LMP 3.5 weeks ago. - History of Current Complaint Stated Complaint: ABD PAIN Time Seen by Provider: 08/18/17 10:55 Hx Obtained From: Patient Hx Last Menstrual Period: 04/08 ?: No Onset/Duration: Sudden Onset Timing: Constant Severity Initially: Moderate Severity Currently: Moderate Pain Intensity: 5 Pain Scale Used: 0-10 Numeric Radiates: No Character: Sharp Aggravating Factor(s): Nothing Alleviating Factor(s): Nothing Associated Signs and Symptoms: Positive: Decreased Appetite, Diarrhea - Risk Factors Ovarian Torsion Risk Factor: Reproductive Age Allergies/Adverse Reactions: Allergies Allergy/AdvReac Type Severity Reaction Status Date / Time Amoxicillin Allergy Severe Difficulty Verified 05/07/17 16:20 Breathing Cefuroxime [From Ceftin] Allergy Severe Difficulty Verified 05/07/17 16:20 Breathing Penicillins Allergy Severe Difficulty Verified 05/07/17 16:20 Breathing Magnesium Hydroxide Allergy Intermediate Itching Verified 05/07/17 16:20 [From Milk of Magnesia] Azithromycin [From Zithromax] Allergy Rash Verified 08/18/17 09:25 Clindamycin Allergy Rash Verified 05/07/17 16:20 Dexamethasone Allergy Fatigue Verified 08/18/17 09:25 Guaifenesin [From Mucinex DM] Allergy Fatigue Verified 08/18/17 09:25 Sulfamethoxazole Allergy Rash Verified 08/18/17 09:25 w/Trimethoprim [From Bactrim] Tea Tree Oil Allergy CHEMICAL Verified 05/07/17 16:20 BURN Yellow Dye [From Mucinex DM] Allergy Fatigue Verified 08/18/17 09:25 Dextromethorphan AdvReac Mild See Comment Verified 05/07/17 16:20 [From Mucinex DM] PMH/Surg Hx/FS Hx/Imm Hx Previously Healthy: Yes Endocrine/Hematology History: Denies: Hx Diabetes, Hx Thyroid Disease Cardiovascular History: Denies: Hx Hypertension, Hx Pacemaker/ICD Respiratory History: Denies: Hx Asthma, Hx Chronic Obstructive Pulmonary Disease (COPD) GI History: Denies: Hx Ulcer History: Denies: Hx Renal Disease Sensory History: Denies: Hx Contacts or Glasses, Hx Hearing Aid Opthamlomology History: Denies: Hx Contacts or Glasses Psychiatric History: Denies: Hx Panic Disorder - Surgical History Surgery Procedure, Year, and Place: 3 surgeries to left knee; tonsilectomy. wisdom teeth extraction-07/2015. SINUS - Immunization History Hx Pertussis Vaccination: No Immunizations Up to Date: Unable to Obtain/Confirm Infectious Disease History: Denies: Hx Clostridium Difficile, Hx Hepatitis, Hx Human Immunodeficiency Virus (HIV), Hx of Known/Suspected MRSA, Hx Shingles, Hx Tuberculosis, Hx Known/ Suspected VRE, Hx Known/Suspected VRSA, History Other Infectious Disease - Family History Known Family History: Positive: None Negative: Cardiac Disease - Social History Occupation: Employed Full-time Lives: With Family Alcohol Use: Rare Hx Substance Use: No Substance Use Type: Reports: None Hx Tobacco Use: No Smoking Status (MU): Never Smoked Tobacco Review of Systems - ROS Summary Review of Systems Summary: Constitutional: The patient denies fever, ARNOLD, sweats or chills. HEENT: Head: The patient denies headaches or dizziness. Eyes: The patient denies diplopia, blurry vision, eye pain, eye discharge, photophobia. Throat: The patient denies sore throats or hoarseness. Cardiovascular: The patient denies chest pain, palpitations, syncope, night cramps, or orthostasis. Respiratory: The patient denies cough, sputum production, hemoptysis, dyspnea, wheezing. Gastrointestinal: The patient endorses early satiety denies odynophagia, dysphagia, hematemesis, melena. Endorses some loose stool. Denies nausea, vomiting, constipation. Endorses right lower quadrant pain which is sharp and intermittent. Genitourinary: Patient denies dysuria, hematuria, or pyuria. Patient denies back pain. Denies vaginal discharge, vaginal bleeding. Denies other urinary symptoms. Endocrine: The patient denies polydipsia, polyuria, or polyphagia. Muscles: The patient denies myalgia, strain or weakness. Joints: The patient denies arthralgia and/or arthritis. Neurologic: The patient denies headache, loss of consciousness, or seizure. . Positive: Fatigue. Negative: Fever, Chills, Skin Diaphoresis Eyes: Negative Cardiovascular: Negative Positive: Abdominal Pain - right lower quadrant Genitourinary: Negative Positive: no symptoms reported, see HPI Musculoskeletal: Negative Skin: Negative Psychological: Normal All Other Systems Reviewed And Are Negative: Yes Physical Exam - Summary Physical Exam Summary: Appearance: WDW, comfortable, pleasant, alert Skin: Soft dry skin, no lesions. Nailbeds pink with no cyanosis or clubbing. No petechia noted. Eyes: SHELDON, EOMI, Conjunctiva pink with no redness or exudates. Mouth: Dentition without lesions. Moist mucosa Neck: Full range of motion. Palpable thyroid. Trachea at midline. No lymphadenopathy. Pulm: Chest symmetrical expansion. No deformities on posterior chest wall. Lungs clear to auscultation and percussion, without adventitious sounds. CV: No JVD. No deformities on anterior chest wall. Heart sounds. RRR. Normal S1 and single S2. No S3, S4, rubs, or murmurs. Carotids 2+ bilaterally without bruits. . exam not performed GI: Bowel sounds WNL in all 4 quadrants. Negative Greer's, positive obturator , psoas not performed. No CVA tenderness bilaterally. Tenderness over McBurney 's point. Positive Rovsing on deep palpation. Musculoskeletal: Flexion and extension of neck without limitations. ROM WNL in all extremities. No deformities noted. Pulses +2 bilaterally. Neuro: Motor strength is 5/5 in upper and lower extremities bilaterally. A&OX3 Psych: Logical, coherent Triage Information Reviewed: Yes Vital Signs Reviewed: Yes Appearance: Positive: Well-Appearing, Well-Nourished Skin: Positive: Skin Color Reflects Adequate Perfusion Head/Face: Positive: Normal Head/Face Inspection Eyes: Positive: EOMI, SHELDON, Conjunctiva Clear Neck: Positive: Supple, No Lymphadenopathy Respiratory/Lung Sounds: Positive: Clear to Auscultation, Breath Sounds Present Cardiovascular: Positive: Pulses are Symmetrical in both Upper and Lower Extremities Abdomen Description: Positive: Soft, McBurney's Point Tenderness. Negative: No Organomegaly, Bruit, CVA Tenderness (R), CVA Tenderness (L), Distended, Guarding , Hernia @, Splenomegaly Musculoskeletal: Positive: Strength/ROM Intact Neurological: Positive: Alert, Oriented to Person Place, Time, Pronator Drift Present Psychiatric: Positive: Normal, Affect/Mood Appropriate - Preston Coma Scale Best Eye Response: 4 - Spontaneous Best Motor Response: 6 - Obeys Commands Best Verbal Response: 5 - Oriented Coma Scale Total: 15 Diagnostics - Laboratory Result Diagrams: 08/18/17 11:20 08/18/17 11:20 Lab Statement: Any lab studies that have been ordered have been reviewed, and results considered in the medical decision making process. Re-Evaluation - Re-Evaluation First Eval Change: Unchanged Comment: On evaluation after fluids were given, patient denies any changes. She declines any medications. Abdominal Pain Fem Course/Dx - Course Course Of Treatment: During the course of treatment the patient is given IV fluids normal saline. UA obtained and labs obtained. CT abdomen and pelvis ordered to rule out appendicitis. Considered ovarian torsion, but patient has low risk factors due to no history of IUD, ovarian cysts or masses, pelvic pain , abnormal bleeding or dysmenorrhea. Abdominal surgeries or pregnancies. Understandably, CT is not typically used for the evaluation of ovarian torsion. On physical exam she is discretely tender over McBurney's point with no radiation of pain. Rovsing sign positive. So as positive, obturator not performed due to patient pain. Greer's negative. No CVA tenderness bilaterally. I believe CT abdomen and pelvis should be the initial study to exclude appendicitis at this time. CT abdomen and pelvis impression is fatty liver. The appendix is not clearly visualized. There is no appreciable inflammatory change within the right lower quadrant. Unable to effectively rule out an appendicitis, however she is afebrile and white count is within normal limits. Vital signs are stable. CRP is normal. BUN and creatinine are slightly elevated, however she is dehydrated. negative. Last bowel movement last evening and she does not feel constipated. I have discussed with the patient the possibility to call the surgeon, but she declines at this time. UA obtained from urgent care and all normal. During her stay, the pain has remained constant at a 5 out of 10. She continues to deny any nausea but continues to have satiety. I have given her strict return precautions as I am unable to percent rule out an appendicitis, or an ovarian pathology. She agrees with plan and discharged and will return for any of these symptoms discussed. - Diagnoses Differential Diagnosis: Positive: Urinary Tract Infection Provider Diagnoses: Right lower quadrant abdominal pain Discharge - Discharge Plan Condition: Stable Disposition: HOME Patient Education Materials: Acute Abdominal Pain (ED) Referrals: Delma Ha NP [Primary Care Provider] - Additional Instructions: Please return immediately to the ED for any worsening or changing symptoms As discussed, we are unable to clearly visualize the appendix but there is no other evidence of a appendicitis on CT examination If you develop a fever, worsening pain despite Tylenol or sweats or chills please return to the ED Warm heat to the area and Tylenol 650 mg 3 times daily Rest Eat small amounts of food at a time Drink plenty of fluid
[2017-08-18 11:25] LABS: ABS Basophils 0 10^3/ul (0-0.2); ABS Eosinophils 0.7 10^3/ul (0-0.6); ABS Lymphocytes 2.1 10^3/ul (1.0-4.8); ABS Monocytes 0.4 10^3/ul (0-0.8); ABS Neutrophils 4.5 10^3/ul (1.5-7.7); ABS Nucleated RBC 0 10^3/ul; Eosinophil % 9.3 % (0-6); Hematocrit 42 % (35-47); Hemoglobin 14.5 g/dl (12.0-16.0); Lymphocyte % 27.1 % (25-47); Mean Corpuscular HGB Conc 34 g/dl (31-36); Mean Corpuscular Hemoglobin 31 pg (27-31); Mean Corpuscular Volume 89 fL (80-97); Mean Platelet Volume 8 um3 (7.4-10.4); Nucleated Red Blood Cells % 0.1; Platelet Count 249 10^3/ul (150-450); Red Blood Count 4.74 10^6/ul (4.0-5.4); Red Cell Distribution Width 13 % (10.5-15); White Blood Count 7.8 10^3/ul (3.5-10.8)
[2017-08-18 11:41] LABS: EGFR Non-African American 134.4 (>60)
[2017-08-18] MEDS ORDERED: Iohexol 300* (CONTRAST) 10 ML SDV IV ONE (11:42)
--- NOTE | 2017-08-18 13:47 | RAD ---
CLINICAL HISTORY: Right lower quadrant pain COMPARISON: None TECHNIQUE: Multiple contiguous axial CT scans were obtained of the abdomen and pelvis after the administration of intravenous contrast. Coronal and sagittal multiplanar reformations are submitted for review. Oral contrast was administered. Delayed images were obtained through the abdomen and pelvis. FINDINGS: LUNG BASES: The lung bases are clear. LIVER: The liver is diffusely low in attenuation compared to the spleen. There are no focal hepatic parenchymal masses. BILE DUCTS: There is no intrahepatic or extrahepatic biliary dilatation. GALLBLADDER: The gallbladder is normal, without pericholecystic inflammatory change. PANCREAS: The pancreas is normal, without mass or ductal dilatation. SPLEEN: Normal in size and appearance. UPPER GI TRACT: Evaluation of the gastrointestinal tract is limited by incomplete gastric distention. The upper GI tract is unremarkable. SMALL BOWEL AND MESENTERY: The small bowel is normal in contour, course, and caliber. There is no obstruction or dilatation. COLON: The colon is normal in contour, course, caliber. There is no pericolonic inflammatory change. The appendix is not clearly visualized. There is no inflammatory change within the right lower quadrant. ADRENALS: Normal bilaterally. KIDNEYS: The kidneys are normal in shape, size, contour, and axis. There is no hydronephrosis or nephrolithiasis. BLADDER: The bladder is smooth in contour. PELVIC ORGANS: The uterus and adnexa are grossly normal for technique. AORTA: The aorta is normal. IVC: Unremarkable LYMPH NODES: There is no lymphadenopathy by size criteria. ABDOMINAL WALL: There is no evidence for abdominal wall hernia. BONES AND SOFT TISSUES: The bones and soft tissues are unremarkable. OTHER: None IMPRESSION: FATTY LIVER. THE APPENDIX IS NOT CLEARLY VISUALIZED. THERE IS NO APPRECIABLE INFLAMMATORY CHANGE WITHIN THE RIGHT LOWER QUADRANT.
[2017-08-18 14:42] VITALS: BP 125/78
== END 2017-08-18 14:51 | disposition home or self-care (01) ==
LOC: ED 10:53
DX: R10.31 Right lower quadrant pain (principal); R19.7 Diarrhea, unspecified; Z88.0 Allergy status to penicillin; R53.83 Other fatigue
CPT/HCPCS: 36415; 74177; 80053; 82550; 83605; 83690; 83735; 84702; 85025; 86140; 96360; 99282; Q9967

== ENCOUNTER 2017-12-29 12:26 | Emergency (ER) | payer OTHER ==
[2017-12-29 13:04] VITALS: BP 137/84
--- NOTE | 2017-12-29 13:33 | UC ---
Lower Extremity/Ankle HPI - HPI Summary HPI Summary: 27 y/o female presents to the urgent care c/o RT ankle pain s/p falling going down the stairs in her building last night at 2330pm. Pt reports there is painting going on in her building stairs and somehow she step wrong in the last step and fell. Pain is sharp, 6/10 on the lateral side of her Rt ankle and Foot w/ swelling. She applied ice and took 600mg PO of Ibuprofen and put an Alberto -bandage around to alleviate symptoms. Last dose taken ws about 2 hrs ago. Pt denies numbness or tingling sensation over Rt lower extremity, calf pain, SOB, chest pain, abdominal pain, N/V/d. Pt has Hx of RT ankle sprain last year. - History of Current Complaint Chief Complaint: UCLowerExtremity Stated Complaint: ANKLE INJURY Time Seen by Provider: 12/29/17 13:30 Hx Obtained From: Patient Hx Last Menstrual Period: 12/24/17 Onset/Duration: Sudden Onset, Lasting Days - 1 day, Still Present, Worse Since - this morning Severity Initially: Moderate Severity Currently: Moderate Pain Intensity: 6 Pain Scale Used: 0-10 Numeric Aggravating Factor(s): Standing, Ambulation Alleviating Factor(s): Rest, OTC Meds Able to Bear Weight: Yes - Risk Factors Gout Risk Factors: Negative DVT Risk Factors: Negative Septic Arthritis Risk Factor: Negative - Allergies/Home Medications Allergies/Adverse Reactions: Allergies Allergy/AdvReac Type Severity Reaction Status Date / Time azithromycin [From Zithromax] Allergy Rash Verified 12/29/17 13:09 cefuroxime [From Ceftin] Allergy resp Verified 12/29/17 13:08 distress clindamycin Allergy resp Verified 12/29/17 13:09 distress dexamethasone Allergy Rash Verified 12/29/17 13:10 guaifenesin [From Mucinex] Allergy Rash Verified 12/29/17 13:10 magnesium hydroxide Allergy Rash Verified 12/29/17 13:08 Sulfa (Sulfonamide Allergy resp Verified 12/29/17 13:09 Antibiotics) distress cillins Allergy resp Uncoded 12/29/17 13:07 distress tree oil Allergy Rash Uncoded 12/29/17 13:11 PMH/Surg Hx/FS Hx/Imm Hx Previously Healthy: Yes Other Endocrine History: Psoriasis - Surgical History Surgical History: Yes Surgery Procedure, Year, and Place: 3 surgeries to left knee; tonsilectomy. wisdom teeth extraction-07/2015. [facility] - Family History Known Family History: Positive: None - Pt denies PMHX Negative: Cardiac Disease - Social History Occupation: Employed Full-time Lives: With Family Alcohol Use: Rare Substance Use Type: None Smoking Status (MU): Never Smoked Tobacco Review of Systems Constitutional: Negative Skin: Negative Eyes: Negative ENT: Negative Respiratory: Negative Cardiovascular: Negative Gastrointestinal: Negative Genitourinary: Negative Motor: Negative Neurovascular: Negative Musculoskeletal: Decreased ROM - RT ankle and foot s/p fall, Other: - RT ankle and foot pain and swelling s/p fall Neurological: Negative Psychological: Negative Is Patient Immunocompromised?: No All Other Systems Reviewed And Are Negative: Yes Physical Exam - Summary Physical Exam Summary: Vital Signs Reviewed: Yes General: well developed, well nourished female, sitting in the examining table w /o any apparent distress Eyes: Positive: Conjunctiva Clear - PERRLA, EOMI, ENT: Positive: Normal ENT inspection, Hearing grossly normal, Pharynx normal, TMs normal Neck: Positive: Supple, Nontender, No Lymphadenopathy Respiratory: Positive: Chest non-tender, Lungs clear, Normal breath sounds, No respiratory distress Cardiovascular: Positive: RRR, No Murmur, Pulses Normal, Brisk Capillary Refill Abdomen Description: Positive: Nontender, No Organomegaly, Soft. Negative: CVA Tenderness (R), CVA Tenderness (L) Bowel Sounds: Positive: Present Musculoskeletal: - Ankle: Pt is able to bear weight and ambulate w/ limping. The R ankle is without obvious asymmetry or deformity when compared to the L ankle. Decreased ROM due to pain. Mild swelling at the lateral malleolus, with tenderness to palpation. No ecchymosis or bruising observed. No tenderness to palpation over the medial malleolus , no swelling observed. Talar tilt test is negative for ligament laxity to valgus or varus stress. Negative anterior drawer. Peroneal nerve is intact with strong eversion and plantar flexion. Positive sensation over the Rt foot and Rt ankle, positive pulses, capillary refill intact Neurological Exam: Normal Psychological Exam: Normal Skin: warm and dry Triage Information Reviewed: Yes Vital Signs: Initial Vital Signs Temp 97.5 F 12/29/17 13:01 Pulse 85 12/29/17 13:01 Resp 16 12/29/17 13:01 BP 137/84 12/29/17 13:01 Pulse Ox 100 12/29/17 13:01 Lower Extremity Course/Dx - Course Course Of Treatment: 27 y/o female presents to the urgent care c/o RT ankle pain s/p falling going down the stairs in her building last night at 2330pm. Pt reports there is painting going on in her building stairs and somehow she step wrong in the last step and fell. Pain is sharp, 6/10 on the lateral side of her Rt ankle and Foot w/ swelling. She applied ice and took 600mg PO of Ibuprofen and put an Alberto-bandage around to alleviate symptoms. Last dose taken ws about 2 hrs ago. Pt denies numbness or tingling sensation over Rt lower extremity, calf pain, SOB, chest pain, abdominal pain, N/V/d. Pt has Hx of RT ankle sprain last year.Hx obtained. Rt ankle and RT foot X-ray ordered, Impression: Mild Soft tissue swelling over the fibular malleolus, no acute fracture. Pt most likely with a RT ankle Sprain. Pt immobilized with gel ankle splint to , given crutches to avoid weight bearing, Rx Tylenol PO to decrease swelling and pain. Pt advised RICE, take tylenol PO for pain and to f/u with PCP on orthopedic Dr Newsome in 1 week if not improvement of symptoms for further treatment. Parents and Pt understood and agreed and left the clinic ambulating w/ the help of crutches. - Differential Dx/Diagnosis Differential Diagnosis/HQI/PQRI: Contusion, Dislocation, Fracture (Closed), Sprain, Strain, Tendonitis Provider Diagnoses: 1- RT ankle and foot pain s/p fall. 2- Rt ankle sprain Discharge - Sign-Out/Discharge Documenting (check all that apply): Discharge/Admit/Transfer - D/C home - Discharge Plan Condition: Stable Disposition: HOME Prescriptions: Acetaminophen TAB* [Tylenol TAB*] 650 mg PO Q6H PRN #30 tab PRN Reason: Pain Patient Education Materials: Ankle Sprain (ED) Forms: *Work Release Referrals: Delma Ha NP [Primary Care Provider] - 1 Week Floyd Newsome MD [Medical Doctor] - 1 Week Additional Instructions: 1-Please take medications as directed to alleviate pain and swelling. 2-Please apply ice, keep your ankle immobilized with the gel splint. Avoid weight bearing using the crutches 3- Please f/u with Orthopedic Dr newsome or your PCP in 1 week is not improvement of symptoms for further evaluation and treatment. - Billing Disposition and Condition Condition: STABLE Disposition: Home
--- NOTE | 2017-12-29 14:17 | RAD ---
INDICATION: Right foot and ankle pain after falling off a step one day earlier. Patient is reported to be laterally and at the toes. COMPARISON: Right ankle radiograph dated January 18, 2017. TECHNIQUE: 3 views of the right ankle and 3 views of the right foot were obtained. FINDINGS: There is a mild degree of asymmetric swelling overlying the fibular malleolus. The bones are normal alignment. Joint spaces appear maintained. No fracture is seen. There is again seen a small enthesophyte at the calcaneal tubercle at the expected insertion of the Achilles tendon. IMPRESSION: MILD SOFT TISSUE SWELLING OVERLYING THE FIBULAR MALLEOLUS WITHOUT RADIOGRAPHICALLY APPARENT ACUTE FRACTURE OR DISLOCATION OF THE RIGHT FOOT OR ANKLE. If the patient's symptoms persist, follow-up imaging is recommended.
== END 2017-12-29 14:46 | disposition home or self-care (01) ==
LOC: UCEAST 12:26
DX: M25.571 Pain in right ankle and joints of right foot (principal); S93.401A Sprain of unspecified ligament of right ankle, initial encounter; W10.9XXA Fall (on) (from) unspecified stairs and steps, initial encounter; Y93.9 Activity, unspecified; Y92.008 Other place in unspecified non-institutional (private) residence as the place of occurrence of the external cause; L40.9 Psoriasis, unspecified; Z88.1 Allergy status to other antibiotic agents; Z88.0 Allergy status to penicillin; Z88.2 Allergy status to sulfonamides; Z88.8 Allergy status to other drugs, medicaments and biological substances
CPT/HCPCS: 99213; G0463